=== PATIENT | male | born 1975 | race Caucasian/White ===

== ENCOUNTER 2019-03-26 17:24 | Emergency (ER) | payer BC ==
[~2019-03-26] VITALS: Ht 188 cm; Wt 84.8 kg
--- NOTE | 2019-03-26 17:46 | NUR ---
ED Nurse Note: PT WALKED IN TO ER TODAY FROM HOME. AOX4. PT C/O RASH ISOLATED TO FACE AFTER GETTING CONTRAST WITH CT SCAN YESTERDAY AROUDN 1000. PT STATES HE TRIED USING BENADRYL AND PEPCID AT HOME WITH NO RELIEF. AIRWAY PATENT AT BEDSIDE. PT DENIES SOB OR DIFFICULTY BREATHING.
[2019-03-26 17:47] VITALS: BP 122/76
[2019-03-26 18:06] VITALS: BP 120/74
--- NOTE | 2019-03-26 18:06 | NUR ---
Note john in EDM - 03/26/19 at 1808 by MEGHAN ED Nurse Note: PT LAYING PEACEFULLY IN BED IN NAD. AOX4. DISCHARGE PAPERWORK EXPLAINED TO PT. PT VERBALIZES UNDERSTANDING AND ALL QUESTIONS ANSWERED. DISCHARGE PAPERWORK GIVEN TO PT AND ID WRISTBAND REMOVED. PT WALKED OUT OF ER WITH STEADY GAIT AND ALL BELONGINGS.
[2019-03-26] MEDS ORDERED: DIPHENHYDRAMINE25 M1 ORAL (18:07)
[2019-03-26] MEDS ORDERED: PREDNISONE20 MG ORAL (18:07)
[2019-03-26] MEDS ORDERED: RANITIDINE HCL150 MG ORAL (18:07)
--- NOTE | 2019-03-26 18:07 | NUR ---
ED Nurse Note: PT LAYING PEACEFULLY IN BED IN NAD. AOX4. PRESCRIPTIONS AND DISCHARGE PAPERWORK EXPLAINED TO PT. PT VERBALIZES UNDERSTANDING AND ALL QUESTIONS ANSWERED. PRESCRIPTIONS AND DISCHARGE PAPERWORK GIVEN TO PT AND ID WRISTBAND REMOVED. PT WALKED OUT OF ER WITH STEADY GAIT AND ALL BELONGINGS.
--- NOTE | 2019-03-26 19:22 | Emergency Room Report ---
History of Present Illness General Chief Complaint: Allergic Reaction Source: Patient Present Illness HPI 43-year-old male presents ED for evaluation. Patient states that he may be having an allergic reaction. Had an outpatient CT yesterday with IV contrast and states that few hours later he noticed redness to his face. Spoke to his PMD and was advised to take Benadryl and Pepcid and states the symptoms did resolve. However he woke up this morning again and the redness resumed. States it is somewhat itchy. Denies any throat swelling or tongue swelling. Denies any shortness of breath. States there is a possible childhood allergy to penicillin but denies any known food allergies. No other aggravating relieving factors. Denies any other associated symptoms Allergies: Coded Allergies: PENICILLINS (Verified Allergy, Unknown, 03/26/19) Patient History Past Medical History: none Past Surgical History: none Pertinent Family History: none Social History: Denies: smoking, alcohol use, drug use Immunizations: UTD Reviewed Nursing Documentation: PMH: Agreed; PSxH: Agreed Nursing Documentation-PMH Past Medical History: No Stated History Review of Systems All Other Systems: negative except mentioned in HPI Physical Exam Vital Signs Date Time Temp Pulse Resp B/P (MAP) Pulse Ox O2 Delivery O2 Flow Rate FiO2 03/26/19 17:30 97.9 62 20 121/78 (92) 99 Room Air Sp02 EP Interpretation: reviewed, normal General Appearance: no apparent distress, alert, GCS 15, non-toxic Head: normocephalic, atraumatic Eyes: bilateral eye normal inspection, bilateral eye PERRL ENT: hearing grossly normal, normal pharynx, no angioedema, normal voice Neck: full range of motion, supple/symm/no masses Respiratory: chest non-tender, lungs clear, normal breath sounds, speaking full sentences Cardiovascular #1: regular rate, rhythm, no edema Cardiovascular #2: 2+ carotid (R), 2+ carotid (L), 2+ radial (R), 2+ radial (L) , 2+ dorsalis pedis (R), 2+ dorsalis pedis (L) Gastrointestinal: normal bowel sounds, non tender, soft, non-distended, no guarding, no rebound Rectal: deferred Genitourinary: normal inspection, no CVA tenderness Musculoskeletal: back normal, gait/station normal, normal range of motion, non- tender Neurologic: alert, oriented x3, responsive, motor strength/tone normal, sensory intact, speech normal Psychiatric: judgement/insight normal, memory normal, mood/affect normal, no suicidal/homicidal ideation Reflexes: 3+ bicep (R), 3+ bicep (L), 3+ tricep (R), 3+ tricep (L), 3+ knee (R) , 3+ knee (L) Skin: other - urticarial rash to face Lymphatic: no adenopathy Medical Decision Making Diagnostic Impression: Primary Impression: Allergic reaction Qualified Codes: T78.40XA - Allergy, unspecified, initial encounter ER Course Hospital Course 43 yo M presents with facial rash after IV contrast Differential diagnoses include: allergic reaction, angioedema, anaphlyaxis Clinical course Patient placed on stretcher. registered respiratory technician. After initial history, reveals male in no acute distress. There is some mild urticarial rash noted to the face. No tongue swelling or throat swelling. No stridor. Lungs clear. Remainder of exam unremarkable. discussed findings with patient. States that symptoms are overall improved. Patient took Benadryl about 4 hours ago. Will give prednisone. Will discharge with Benadryl and prednisone. Safe for discharge for close outpatient follow- up. 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 States he has a PMD i. I feel this is a highly complex case requiring extensive working including EKG/Rhythm strip, Xray/CT/US, Blood/urine lab work, repeat exams while in ED, and administration of strong opiates/narcotics for pain control, admission to hospital or close patient follow up. Diagnosis - allergic reaction Stable and discharged to home with prescriptions for Zantac, prednisone, Benadryl. Followup with PMD. Return to ED if symptoms recur or worsen Last Vital Signs Date Time Temp Pulse Resp B/P (MAP) Pulse Ox O2 Delivery O2 Flow Rate FiO2 03/26/19 18:06 98.3 60 17 120/74 100 Room Air Status: improved Disposition: HOME, SELF-CARE Condition: Stable Scripts Ranitidine Hcl* (ZANTAC*) 150 Mg Tablet 150 MG ORAL TWICE A DAY, #30 TAB Prov: Roger Kumari MD 03/26/19 Diphenhydramine Hcl* (DIPHENHYDRAMINE HCL*) 25 Mg Capsule 25 MG ORAL Q6H PRN for Itching for 5 Days, #30 CAP 0 Refills Prov: Roger Kumari MD 03/26/19 Prednisone* (PREDNISONE*) 20 Mg Tablet 40 MG ORAL DAILY, #10 TAB Prov: Roger Kumari MD 03/26/19 Referrals: NON PHYSICIAN (PCP) Patient Instructions: Drug Allergy Roger Kumari MD Mar 26, 2019 19:22
== END 2019-03-26 18:09 | disposition home or self-care (01) ==
LOC: EMR 17:48
DX: T78.40XA Allergy, unspecified, initial encounter (principal); R21 Rash and other nonspecific skin eruption; X58.XXXA Exposure to other specified factors, initial encounter
CPT/HCPCS: 99282; J7512